=== PATIENT | male | born 1960 | race African-American/Black ===

== ENCOUNTER 2017-03-16 08:25 | Emergency (ER) | payer OTHER ==
[~2017-03-16] VITALS: Ht 182.9 cm; Wt 109.7 kg
[2017-03-16 08:27] VITALS: BP 171/114; PULSE 76; TEMP 36.4; O2SAT 99; Ht 182.9 cm; Wt 109.7 kg
[2017-03-16] MEDS ORDERED: CEPH500C2 PO (08:50)
[2017-03-16] MEDS ORDERED: SULF800T23 PO (08:50)
--- NOTE | 2017-03-16 12:24 | EMERGENCY ROOM VISIT NOTE ---
ED Visit Note First contact with patient: 08:34 Chief Complaint: Insect bite on left thumb. History of Present Illness: Mr. Ball is a 56-year-old black male who ambulates into the ED complaining of a possible infection on the left thumb. Patient reports 3 days ago he noted a spider on his bedroom pillow when he awoke and noted a small puncture wound over the posterior aspect of the left thumb just distal to the interphalangeal joint. He feels like he might of been bit by a spider. Over the last 3 days he reports he has been having some increasing redness and swelling in the area of the puncture wound. He does report he also thought he might have had a splinter in the area because he works construction and he has been attempting to squeeze the lesion but has not been able to get a splinter out. Associated with the redness and swelling he is now having a throbbing in the distal aspect of the finger. He rates his discomfort 3/10. The pain is nonradiating. The pain worsens with palpation. He has not identified any alleviating factors related to the pain. He has not taken any medication for pain prior to arrival at the hospital. He denies any associated symptoms including fingers, chills, sweats, other skin eruptions, other skin color changes, cough, wheezing, shortness of breath, chest pain, abdominal pain, nausea, vomiting, decreased appetite, left thumb weakness/numbness/tingling. Review of Systems: As noted above in history of present illness. 8 body systems were reviewed and found to be negative as noted above. Past Medical History: Hypertension. Current Medications: Amlodipine. Allergies to Medications: Unspecified antibiotic. Social History: Patient is currently employed; he feels safe in his home environment; he denies tobacco use. Physical Examination: Vital Signs: Date Time Temp Pulse Resp B/P (MAP) Pulse Ox O2 Delivery O2 Flow Rate FiO2 03/16/17 08:27 36.4 76 18 171/114 99 Room Air GENERAL: 56-year-old male in no acute distress, nontoxic-appearing, afebrile and hemodynamically stable. NEUROLOGICAL: Awake, alert and oriented to person, place and time. Answering questions appropriately and following commands. Normal gait. Good hand eye coordination. SKIN: Warm, dry and pink. Left Thumb: Small puncture wound over the posterior aspect of the thumb just distal to the interphalangeal joint line with mild swelling and erythema. THORAX: Lungs sounds are clear to auscultation and equal bilaterally with symmetrical chest wall. ABDOMEN: Flat, soft and nontender. Positive bowel sounds in all quadrants. LEFT THUMB: Please see skin notation above. No gross bony deformity. Full range of motion in all movements of the MCP and interphalangeal joint. Throughout the finger the skin was warm and pink and capillary refill is brisk. He was able to distinguish light sensations through all dermatomes. ED Course: Patient is assessed as noted above. Patient's medication list was reviewed. Patient was offered pain medications and refused. I did have the patient contact his primary care provider in [place] and they reported they have no documentation of antibiotic allergies. Patient was educated about today's findings and instructed on his treatment plan ; he verbalized understanding and agreement with this plan. Clinical Impression: Left thumb cellulitis. Patient's blood pressure: Elevated. Blood pressure disposition: Patient reports he was just diagnosed with hypertension and started on his amlodipine less than one week ago. He is scheduled for follow-up. Disposition: Patient discharged home in stable condition; prior to departure he was reassessed and subjectively reported he was feeling better and reported he was pain-free. Plan: Comfort measures, wound care and signs of infection were discussed with the patient. Patient was prescribed Keflex 500 mg 4 times a day for 10 days and Bactrim DS 2 times a day for 10 days. Patient is encouraged to follow-up with PCP or return to the ED for recheck in 36-48 hours. Patient was encouraged return ED for worsening signs of infection or any new/ concerning symptoms.
== END 2017-03-16 08:59 | disposition home or self-care (01) ==
LOC: C.EDB 08:27
DX: L03.012 Cellulitis of left finger (principal); I10 Essential (primary) hypertension